=== PATIENT | female | born 1955 | race Hispanic/Latino ===

== ENCOUNTER → 2022-03-16 | Outpatient (CLI) | payer MEDICARE, OTHER | LOC: RAD 10:59 | PROVIDERS: ATTEND Internal Medicine | DX: R05.9 Cough, unspecified (principal) | CPT/HCPCS: 71046 ==

== ENCOUNTER → 2024-03-27 | Outpatient (REF) | payer MEDICARE | LOC: RAD 15:04 | PROVIDERS: ATTEND Internal Medicine | DX: M25.551 Pain in right hip (principal); M54.50 Low back pain, unspecified | CPT/HCPCS: 72110 ==

== ENCOUNTER 2024-09-10 10:43 | Emergency (ER) | payer MEDICARE ==
[~2024-09-10] VITALS: Ht 165.1 cm; Wt 72.6 kg
[2024-09-10 10:49] VITALS: TEMP 98
[2024-09-10] MEDS ORDERED: PROCHLORPERAZINE EDISYLATE 5 MG/ML VIAL IV ONE (11:15)
[2024-09-10 11:16] LABS: BASOPHILS % 0.4 % (0.0-1.0); EOSINOPHILS % 0.2 % (0.0-6.0); HEMATOCRIT 36.4 % (34.2-44.1); HEMOGLOBIN 13.1 g/dL (12.0-16.0); LYMPHOCYTES # (AUTO) 0.8 (1.0-3.2); LYMPHOCYTES % 9.7 % (18.0-39.1); MEAN CORPUSCULAR HEMOGLOBIN 34.9 pg (28-32); MEAN CORPUSCULAR VOLUME 97.1 fL (81-99); MONOCYTES # (AUTO) 0.6 (0.2-0.8); MONOCYTES % 7.1 % (4.4-11.3); NEUTROPHILS # (AUTO) 6.7 (2.1-6.9); NEUTROPHILS % 82.5 % (38.7-80.0); PLATELET COUNT 171 x10e3/uL (140-360); RED BLOOD COUNT 3.75 x10e6/uL (3.6-5.1); RED CELL DISTRIBUTION WIDTH 12.3 % (11.7-14.4); WHITE BLOOD COUNT 8.15 x10e3/uL (4.8-10.8)
[2024-09-10 11:21] LABS: INR 0.97; PROTHROMBIN TIME 13.8 seconds (11.9-14.5)
[2024-09-10 11:22] LABS: PARTIAL THROMBOPLASTIN TIME 28.2 seconds (23.8-35.5)
[2024-09-10] MEDS: DIPHENHYDRAMINE HCL INJ 50 MG/ML VIAL IV ONE (11:23)
[2024-09-10] MEDS: SODIUM CHLORIDE 0.9% 1000ML 1,000 ML IV ONE (11:23)
[2024-09-10] MEDS: ACETAMINOPHEN 325 MG TAB PO ONE (11:23)
[2024-09-10 11:31] LABS: ALBUMIN 3.9 g/dL (3.5-5.0); ALBUMIN/GLOBULIN RATIO 1.3 (0.8-2.0); ANION GAP 15.4 mmol/L (8-16); BILIRUBIN,TOTAL 0.7 mg/dL (0.2-1.2); CALCIUM 8.7 mg/dL (8.4-10.2); CREATININE, SERUM 0.76 mg/dL (0.57-1.11); POTASSIUM 3.4 mmol/L (3.5-5.1); TOTAL PROTEIN 6.9 g/dL (6.5-8.1)
[2024-09-10] MEDS ORDERED: IOPAMIDOL 370 MG/ML 100 ML INFUS..BTL INJ ONE (11:40)
[2024-09-10] MEDS: PROCHLORPERAZINE EDISYLATE 5 MG/ML VIAL IV ONE (13:07)
[2024-09-10 13:34] VITALS: PULSE 56; PULSE 57; RESP 16; O2SAT 98
== END 2024-09-10 14:41 | disposition home or self-care (01) ==
LOC: ER 10:55
DX: R51.9 Headache, unspecified (principal); I67.1 Cerebral aneurysm, nonruptured; R11.0 Nausea; I10 Essential (primary) hypertension; M32.9 Systemic lupus erythematosus, unspecified; Z86.73 Personal history of transient ischemic attack (TIA), and cerebral infarction without residual deficits
CPT/HCPCS: 36415; 70496; 80053; 85025; 85610; 85730; 99284; J0780; J1200; J7030; Q9967